=== PATIENT | male | born 1985 | race Caucasian/White ===

== ENCOUNTER 2017-05-31 14:49 | Emergency (ER) | payer BC, MEDICAID ==
[~2017-05-31] VITALS: Ht 177.8 cm; Wt 64.0 kg
[2017-05-31 14:58] VITALS: BP 139/90
== END 2017-05-31 18:21 | disposition left against medical advice (07) ==
LOC: ER 17:43
DX: Z53.21 Procedure and treatment not carried out due to patient leaving prior to being seen by health care provider (principal); F12.10 Cannabis abuse, uncomplicated; Z98.890 Other specified postprocedural states